=== PATIENT | male | born 1950 | race Caucasian/White ===

== ENCOUNTER 2018-01-05 10:23 | Day surgery (SDC) | payer MEDICARE, BC ==
[~2018-01-05 10:23] MED LIST: Acetaminophen 325 MG Tab PO SCH; Bisacodyl 5 MG Tab PO PRN; Cyclobenzaprine 10 MG Tab PO PRN; EPINEPHrine 1 MG/ML SDV ONE; Ketorolac 15 MG/ML SDV IVPUSH PRN; Lactated Ringers 1,000 ML IV SCH; Lidocaine 1%/Sod Bicarbonate in NS 8.4% 1 ML Syringe IDERM PRN; Magnesium Hydroxide 400 MG/5 ML Susp 30 ML Cup PO PRN; Morphine 2 MG/ML Syringe IVPUSH PRN; Naloxone 0.4 MG/ML SDV IVPUSH PRN; Ondansetron 4 MG/2 ML SDV IVPUSH PRN; Pregabalin 25 MG Cap PO SCH; Ropivacaine 0.5% 5 MG/ML 30 ML SDV ONE; Sennosides 8.6 MG Tab PO PRN; Sodium Chloride 0.9% 10 ML Syringe FLUSH PRN; oxyCODONE ER 10 MG TAB.ER PO SCH
[2018-01-05] MEDS ORDERED: Propofol 200 MG/20 ML SDV ONE ×2 (12:37→14:41)
[2018-01-05] MEDS ORDERED: Ketamine 500 mg/10 ML MDV ONE (12:44)
[2018-01-05] MEDS ORDERED: fentaNYL 100 MCG/2 ML SDV ONE (12:44)
[2018-01-05] MEDS ORDERED: Midazolam 1 MG/ML 2 ML SDV ONE (12:44)
[2018-01-05] MEDS ORDERED: Dexamethasone 4 MG/ML 5 ML MDV ONE (12:52)
[2018-01-05] MEDS ORDERED: Ondansetron 4 MG/2 ML SDV ONE (12:52)
[2018-01-05] MEDS ORDERED: ceFAZolin 1 GM Vial ONE (12:52)
[2018-01-05] MEDS ORDERED: Lactated Ringers 1,000 ML ONE (13:27)
[2018-01-05] MEDS: ceFAZolin 1 GM Vial ONE ×2 (14:03→14:28)
[2018-01-05] MEDS: Bupivacaine 0.25% 30 ML SDV ONE ×2 (14:03→14:34)
[2018-01-05] MEDS: Iodine/Sodium Iodide 2% Tincture 30 ML Bottle ONE ×2 (14:04→14:25)
[2018-01-05] MEDS: Morphine 8 MG, EPINEPHrine 0.3 MG, Cefuroxime 750 MG, Ketorolac 30 MG, Sodium Chloride ... ONE ×15 (14:05→17:59)
[2018-01-05] MEDS: Vancomycin 1 GM SDV ONE ×2 (14:05→14:36)
[2018-01-05] MEDS ORDERED: fentaNYL 100 MCG/2 ML SDV IVPUSH PRN (15:11)
[2018-01-05] MEDS ORDERED: diphenhydrAMINE 50 MG/ML SDV IVPUSH PRN (15:11)
[2018-01-05] MEDS ORDERED: Ondansetron 4 MG/2 ML SDV IVPUSH PRN (15:11)
[2018-01-05] MEDS ORDERED: Meperidine 50 MG/ML Vial IVPUSH PRN (15:11)
--- NOTE | 2018-01-05 15:11 | PCM.POSTAN ---
POST ANESTHESIA ASSESSMENT - MENTAL STATUS Mental Status: Alert, Oriented - VITAL SIGNS Pulse Rate: 61 SaO2: 97 Resp Rate: 16 Blood Pressure: 102/63 Temperature: 37.2 C - RESPIRATORY Respiratory Status: Respiratory Rate WNL, Airway Patent, O2 Saturation Stable, Supplemental Oxygen - CARDIOVASCULAR CV Status: Pulse Rate WNL, Blood Pressure Stable - GASTROINTESTINAL GI Status: No Symptoms - PAIN Pain Score: 0 - POST OP HYDRATION Hydration Status: Adequate & Stable
--- NOTE | 2018-01-05 15:41 | PCM.SN ---
- Free Text/Narrative Note: Right selective femoral nerve block at the adductor canal for post-procedure pain control Time Out: 1520 Start: 1526 End: 1529 Chart reviewed. Consent signed. Questions answered. Appropriate monitors applied. Time out performed. Right mid-shaft femur evaluated with ultrasound. Scanning medially femur, I was able to identify the femoral artery in the adductor canal. The saphenous nerve was lateral to the artery. The skin was prepped lateral to the ultrasound probe with chlorahexadine. The 21ga 4 insulated block needle was inserted under direct ultrasound guidance into the adductor canal. 20mL of 0.5% ropivacaine with 1:200,000 epinephrine was injected cirmcumferentially about the nerve with intermittent negative aspiration every 5mL. Patient tolerated the procedure well. See pictures on progress note and vital signs on nurses notes. Block completed postoperatively. Dean Rincon CRNA
--- NOTE | 2018-01-05 16:01 | PCM.SN ---
- Free Text/Narrative Note: In to see Ruben s/p R TKA POD 0. Overall he is doing well. He has no complaints at this time. Pain is controlled. Denies any MIRELES, N/V/D, abdominal pain, Chest pain, SOB, numbness/tingling, complaints. O2 2L NC. He does not have a urinary catheter. Incentive Spirometry. Neurovascularly intact with 2+ pulses in bilateral lower extremities. Bandage is dry and intact. He is working with PT. No concerns from nursing. Will likely be D/C'd tomorrow pending clinical disposition and labs.
[2018-01-05] MEDS: Docusate Sodium 100 MG Cap PO SCH ×2 (16:49→20:42)
[2018-01-05] MEDS: Famotidine 20 MG Tab PO SCH (20:42)
[2018-01-05] MEDS: ceFAZolin 2 GM in Premix Bag 1 BAG IV SCH (20:43)
[2018-01-05] MEDS: Acetaminophen/oxyCODONE 325-5 MG Tab PO PRN (22:47)
[2018-01-06] MEDS: Acetaminophen/oxyCODONE 325-5 MG Tab PO PRN ×3 (03:48→10:52)
[2018-01-06] MEDS: ceFAZolin 2 GM in Premix Bag 1 BAG IV SCH (05:12)
[2018-01-06] MEDS ORDERED: Levothyroxine 88 MCG Tab PO SCH (06:00)
--- NOTE | 2018-01-06 06:47 | PCM.SN ---
- Free Text/Narrative Note: In to see Ruben. He is S/P right TKA, post-op day 1. He is doing well. Currently working with PT. He denies any chest pain, palpitations, SOB, N/V/D, or abdominal pain. He has urinated. Labs and vital signs today look good. Pain is controlled. No nursing or patient concerns. Physical exam is unremarkable with no abdominal pain, clear lung sounds, and normal rate/rhythm. Pulses are 2 + bilaterally on upper and lower extremities with no neurological deficits. From a hospitalist standpoint he is cleared for discharge pending primary team and PT/OT agreement.
--- NOTE | 2018-01-06 07:55 | PCM.SURGPN ---
- General Info Date of Service: 01/06/18 POD#: 1 Functional Status: Reports: Pain Controlled, Tolerating Diet, Ambulating, Urinating, Incentive Spirometry - Review of Systems Musculoskeletal: Reports: Other (The pt states his pain is tolerable.) - Patient Data Vitals - Most Recent: Last Vital Signs Temp 97.2 F 01/06/18 03:34 Pulse 59 L 01/06/18 03:34 Resp 16 01/06/18 03:34 BP 130/78 01/06/18 03:34 Pulse Ox 97 01/06/18 03:34 Weight - Most Recent: 218 lb I&O - Last 24 Hours: Intake & Output 01/05/18 01/06/18 01/06/18 22:59 06:59 14:59 Intake Total 905 246 Output Total 1525 350 Balance -620 -104 Lab Results Last 24 Hrs: Laboratory Results - last 24 hr 01/05/18 01/06/18 01/06/18 Range/Units 10:50 05:45 05:45 WBC 13.74 H (4.23-9.07) K/mm3 RBC 4.10 L (4.63-6.08) M/mm3 Hgb 13.6 L (13.7-17.5) gm/L Hct 40.6 (40.1-51.0) % MCV 99.0 H (79.0-92.2) fl MCH 33.2 H (25.7-32.2) pg MCHC 33.5 (32.2-35.5) g/dl RDW Std Deviation 45.1 H (35.1-43.9) fL Plt Count 143 L (163-337) K/mm3 MPV 11.5 (9.4-12.3) fl PT 10.8 (9.5-12.1) SECONDS INR 0.99 Sodium 140 (136-145) mEq/L Potassium 3.9 (3.5-5.1) mEq/L Chloride 107 (98-107) mEq/L Carbon Dioxide 25 (21-32) mEq/L Anion Gap 11.9 (5-15) BUN 17 (7-18) mg/dL Creatinine 1.0 (0.7-1.3) mg/dL Est Cr Clr Drug Dosing 67.94 mL/min Estimated GFR (MDRD) > 60 (>60) mL/min BUN/Creatinine Ratio 17.0 (14-18) Glucose 114 (80-115) mg/dL Calcium 8.6 (8.5-10.1) mg/dL Total Bilirubin 0.8 (0.2-1.0) mg/dL AST 21 (15-37) U/L ALT 26 (16-63) U/L Alkaline Phosphatase 39 L (46-116) U/L Total Protein 6.4 (6.4-8.2) g/dl Albumin 3.2 L (3.4-5.0) g/dl Globulin 3.2 gm/dL Albumin/Globulin Ratio 1.0 (1-2) Med Orders - Current: Current Medications Allopurinol (Zyloprim) 300 mg PO DAILY [facility] Aspirin (Ecotrin) 325 mg PO BID [facility] Bisacodyl (Dulcolax) 5 mg PO DAILY PRN PRN Reason: Constipation Cholecalciferol (Vitamin D3) 5,000 unit PO DAILY [facility] Cyclobenzaprine HCl (Flexeril) 10 mg PO TID PRN PRN Reason: Spasms Docusate Sodium (Colace) 100 mg PO BID [facility] Last Admin: 01/05/18 20:42 Dose: 100 mg Famotidine (Pepcid) 20 mg PO Q12H [facility] Last Admin: 01/05/18 20:42 Dose: 20 mg Cefazolin Sodium/Dextrose 2 gm (/ Premix) 50 mls @ 100 mls/hr IV Q8H [facility] Stop: 01/06/18 13:29 Last Admin: 01/06/18 05:12 Dose: 100 mls/hr Ketorolac Tromethamine (Toradol) 15 mg IVPUSH Q6H PRN PRN Reason: Pain Levothyroxine Sodium (Synthroid) 88 mcg PO ACBREAKFAST [facility] Last Admin: 01/06/18 05:10 Dose: 88 mcg Magnesium Hydroxide (Milk Of Magnesia) 30 ml PO BID PRN PRN Reason: Constipation Morphine Sulfate (Morphine) 2 mg IVPUSH Q2H PRN PRN Reason: Breakthrough Pain Multivitamins (Thera) 1 each PO DAILY [facility] Naloxone HCl (Narcan) 0.1 mg IVPUSH Q5M PRN PRN Reason: Oversedation Ondansetron HCl (Zofran) 4 mg IVPUSH Q6H PRN PRN Reason: Nausea/Vomiting Oxycodone/Acetaminophen (Percocet 325-5 Mg) 1 - 2 tab PO Q4H PRN PRN Reason: Pain Last Admin: 01/06/18 03:48 Dose: 1 tab Senna (Senna) 8.6 mg PO BID PRN PRN Reason: Constipation Discontinued Medications Acetaminophen (Tylenol) 650 mg PO ONETIME [facility] Stop: 01/05/18 15:00 Last Admin: 01/05/18 12:11 Dose: 650 mg Bupivacaine HCl (Marcaine 0.25%) Confirm Administered Dose 30 ml .ROUTE .STK- MED ONE Stop: 01/05/18 12:08 Last Admin: 01/05/18 14:34 Dose: 30 ml Cefazolin Sodium (Ancef) Confirm Administered Dose 2 gm .ROUTE .STK-MED ONE Stop: 01/05/18 12:08 Last Admin: 01/05/18 14:28 Dose: 2 gm Cefazolin Sodium (Ancef) Confirm Administered Dose 2 gm .ROUTE .STK-MED ONE Stop: 01/05/18 12:53 Morphine Sulfate 8 mg/Epinephrine HCl 0.3 mg/Cefuroxime Sodium 750 mg/Ketorolac Tromethamine 30 mg/Sodium Chloride 27.9 ml 0 mg .XX ONETIME ONE Stop: 01/05/18 13:31 Last Admin: 01/05/18 17:59 Dose: Not Given Dexamethasone (Dexamethasone) Confirm Administered Dose 20 mg .ROUTE .STK-MED ONE Stop: 01/05/18 12:53 Diphenhydramine HCl (Benadryl) 25 mg IVPUSH Q6H PRN PRN Reason: Pruritis Stop: 01/05/18 23:00 Epinephrine HCl (Adrenalin) Confirm Administered Dose 1 mg .ROUTE .STK-MED ONE Stop: 01/05/18 08:21 Fentanyl (Sublimaze) Confirm Administered Dose 100 mcg .ROUTE .STK-MED ONE Stop: 01/05/18 12:45 Fentanyl (Sublimaze) 50 mcg IVPUSH Q5M PRN PRN Reason: Pain Stop: 01/05/18 23:00 Lactated Ringer's (Ringers, Lactated) 1,000 mls @ 125 mls/hr IV ASDIRECTED [facility] Stop: 01/05/18 23:00 Last Admin: 01/05/18 10:55 Dose: 125 mls/hr Lactated Ringer's (Ringers, Lactated) Confirm Administered Dose 1,000 mls @ as directed .ROUTE .ST-MED ONE Stop: 01/05/18 13:28 Iodine (Iodine 2% Mild Tincture) Confirm Administered Dose 30 ml .ROUTE .STK- MED ONE Stop: 01/05/18 12:08 Last Admin: 01/05/18 14:25 Dose: 18 ml Ketamine HCl (Ketalar) Confirm Administered Dose 500 mg .ROUTE .STK-MED ONE Stop: 01/05/18 12:45 Lidocaine/Sodium Bicarbonate (Buffered Lidocaine 1% In Ns 8.4%) 0.25 ml IDERM ONETIME PRN PRN Reason: Prior to IV Start Stop: 01/05/18 18:00 Last Admin: 01/05/18 10:55 Dose: 0.25 ml Meperidine HCl (Meperidine) 12.5 mg IVPUSH ONETIME PRN PRN Reason: Shivering Stop: 01/05/18 23:00 Midazolam HCl (Versed 1 Mg/Ml) Confirm Administered Dose 2 mg .ROUTE .STK-MED ONE Stop: 01/05/18 12:45 Non-Formulary Medication (Chromium Picolinate [Chromium Picolinate]) 400 mcg PO DAILY [facility] Ondansetron HCl (Zofran) Confirm Administered Dose 4 mg .ROUTE .STK-MED ONE Stop: 01/05/18 12:53 Ondansetron HCl (Zofran) 4 mg IVPUSH ONETIME PRN PRN Reason: Nausea/Vomiting Stop: 01/05/18 23:00 Oxycodone HCl (Oxycontin) 10 mg PO ONETIME [facility] Stop: 01/05/18 16:00 Last Admin: 01/05/18 12:10 Dose: 10 mg Pregabalin (Lyrica) 50 mg PO ONETIME [facility] Stop: 01/05/18 15:00 Last Admin: 01/05/18 12:10 Dose: 50 mg Propofol (Diprivan 20 Ml) Confirm Administered Dose 600 mg .ROUTE .STK-MED ONE Stop: 01/05/18 12:38 Propofol (Diprivan 20 Ml) Confirm Administered Dose 200 mg .ROUTE .STK-MED ONE Stop: 01/05/18 14:42 Ropivacaine (Naropin 0.5%) Confirm Administered Dose 30 ml .ROUTE .STK-MED ONE Stop: 01/05/18 08:22 Sodium Chloride (Saline Flush) 10 ml FLUSH ASDIRECTED PRN PRN Reason: Keep Vein Open Stop: 01/05/18 18:00 Tranexamic Acid (Cyklokapron) Confirm Administered Dose 1,000 mg .ROUTE .STK- MED ONE Stop: 01/05/18 12:08 Last Admin: 01/05/18 14:40 Dose: 1,000 mg Vancomycin HCl (Vancomycin) Confirm Administered Dose 1 gm .ROUTE .STK-MED ONE Stop: 01/05/18 12:08 Last Admin: 01/05/18 14:36 Dose: 1 gm - Exam Wound/Incisions: Dressing Dry and Intact General: Alert, Cooperative, No Acute Distress Lungs: Normal Respiratory Effort Extremities: Other (NVS intact for BLE. Silvestre's negative.) - Problem List Review Problem List Initiated/Reviewed/Updated: Yes - My Orders Last 24 Hours: Active Orders 24 hr Category Date Time Status Patient Status [ADT] Routine ADT 01/05/18 07:11 Active Ambulate [RC] PER UNIT ROUTINE Care 01/05/18 07:11 Active Communication Order [RC] ROUTINE Care 01/05/18 15:11 Active Cooling Warming Measures [RC] ASDIRECTED Care 01/05/18 15:11 Inactive May Shower [RC] ASDIRECTED Care 01/05/18 07:11 Active Notify Provider Consults [RC] ASDIRECTED Care 01/05/18 07:14 Active Notify Provider [RC] ASDIRECTED Care 01/05/18 15:11 Active Oxygen Therapy [RC] .PRN Care 01/05/18 15:11 Active Pulse Oximetry [RC] ASDIRECTED Care 01/05/18 15:11 Active RT Incentive Spirometry [RC] Q1HWA Care 01/05/18 07:10 Active Ready for Discharge [RC] PER UNIT ROUTINE Care 01/06/18 07:52 Ordered Up to Chair [RC] ASDIRECTED Care 01/05/18 07:11 Active Urinary Catheter Removal [RC] 2325 Care 01/05/18 07:10 Active Vital Signs [RC] Q15M Care 01/05/18 15:11 Inactive Vital Signs [RC] Q4HR Care 01/05/18 07:11 Active Consult to Physician [CONS] Routine Cons 10/01/18 07:11 Active OT Evaluation and Treatment [CONS] Routine Cons 01/05/18 07:10 Active PT Evaluation and Treatment [CONS] Routine Cons 01/05/18 07:10 Active Regular Diet [DIET] Diet 01/05/18 Lunch Active Knee 1V or 2V Rt [CR] Timed Exams 01/05/18 07:10 Taken Acetaminophen/oxyCODONE [Percocet 325-5 MG] Med 01/05/18 07:10 Active 1 - 2 tab PO Q4H PRN Allopurinol [Zyloprim] Med 01/06/18 09:00 Active 300 mg PO DAILY Aspirin [Ecotrin] Med 01/06/18 09:00 Active 325 mg PO BID Bisacodyl [Dulcolax] Med 01/05/18 07:11 Active 5 mg PO DAILY PRN Cholecalciferol (Vitamin D3) [Vitamin D3] Med 01/06/18 09:00 Active 5,000 unit PO DAILY Cyclobenzaprine [Flexeril] Med 01/05/18 07:10 Active 10 mg PO TID PRN Docusate Sodium [Colace] Med 01/05/18 09:00 Active 100 mg PO BID Famotidine [Pepcid] Med 01/05/18 21:00 Active 20 mg PO Q12H Ketorolac [Toradol] Med 01/05/18 07:10 Active 15 mg IVPUSH Q6H PRN Levothyroxine [Synthroid] Med 01/06/18 06:00 Active 88 mcg PO ACBREAKFAST Magnesium Hydroxide [Milk of Magnesia] Med 01/05/18 07:11 Active 30 ml PO BID PRN Morphine Med 01/05/18 07:11 Active 2 mg IVPUSH Q2H PRN Multivitamins,Therapeutic [Thera] Med 01/06/18 09:00 Active 1 each PO DAILY Naloxone [Narcan] Med 01/05/18 07:11 Active 0.1 mg IVPUSH Q5M PRN Ondansetron [Zofran] Med 01/05/18 07:11 Active 4 mg IVPUSH Q6H PRN Sennosides [Senna] Med 01/05/18 07:11 Active 8.6 mg PO BID PRN ceFAZolin [Ancef] 2 gm Med 01/05/18 21:00 Active Premix Bag 1 bag IV Q8H Antiembolic Hose [OM.PC] Per Unit Routine Oth 01/05/18 07:13 Ordered Ice Therapy [OM.PC] Per Unit Routine Oth 01/05/18 07:12 Ordered Sequential Compression Device [OM.PC] Per Unit Routine Oth 01/05/18 07:10 Ordered Resuscitation Status Routine Resus Stat 01/05/18 07:11 Ordered Medication Orders Allopurinol (Zyloprim) 300 mg PO DAILY [facility] Aspirin (Ecotrin) 325 mg PO BID [facility] Bisacodyl (Dulcolax) 5 mg PO DAILY PRN PRN Reason: Constipation Cholecalciferol (Vitamin D3) 5,000 unit PO DAILY [facility] Cyclobenzaprine HCl (Flexeril) 10 mg PO TID PRN PRN Reason: Spasms Docusate Sodium (Colace) 100 mg PO BID [facility] Last Admin: 01/05/18 20:42 Dose: 100 mg Admin: 01/05/18 16:49 Dose: Not Given Famotidine (Pepcid) 20 mg PO Q12H [facility] Last Admin: 01/05/18 20:42 Dose: 20 mg Cefazolin Sodium/Dextrose 2 gm (/ Premix) 50 mls @ 100 mls/hr IV Q8H [facility] Stop: 01/06/18 13:29 Last Admin: 01/06/18 05:12 Dose: 100 mls/hr Infusion: 01/05/18 21:13 Dose: 100 mls/hr Admin: 01/05/18 20:43 Dose: 100 mls/hr Ketorolac Tromethamine (Toradol) 15 mg IVPUSH Q6H PRN PRN Reason: Pain Levothyroxine Sodium (Synthroid) 88 mcg PO ACBREAKFAST [facility] Last Admin: 01/06/18 05:10 Dose: 88 mcg Magnesium Hydroxide (Milk Of Magnesia) 30 ml PO BID PRN PRN Reason: Constipation Morphine Sulfate (Morphine) 2 mg IVPUSH Q2H PRN PRN Reason: Breakthrough Pain Multivitamins (Thera) 1 each PO DAILY [facility] Naloxone HCl (Narcan) 0.1 mg IVPUSH Q5M PRN PRN Reason: Oversedation Ondansetron HCl (Zofran) 4 mg IVPUSH Q6H PRN PRN Reason: Nausea/Vomiting Oxycodone/Acetaminophen (Percocet 325-5 Mg) 1 - 2 tab PO Q4H PRN PRN Reason: Pain Last Admin: 01/06/18 03:48 Dose: 1 tab Admin: 01/05/18 22:47 Dose: 1 tab Senna (Senna) 8.6 mg PO BID PRN PRN Reason: Constipation - Assessment Assessment (Free Text/Narrative):: POD#1 - right TKA - Plan Plan (Free Text/Narrative):: 1. Discharge to home today. 2. 325mg ASA PO BID. Frequent mobility, TEDs. 3. Hgb 13.6. 4. Outpatient therapy. The pt's case was discussed with Dr. Martell.
[2018-01-06] MEDS: Famotidine 20 MG Tab PO SCH (08:10)
[2018-01-06] MEDS: Docusate Sodium 100 MG Cap PO SCH (08:11)
--- NOTE | 2018-01-06 08:53 | CR ---
Right knee: AP and lateral views of the right knee were obtained. Comparison: No previous knee exam. Knee prosthesis is seen. Components are aligned. Underlying bony structures are intact. Soft tissue air noted from the surgical procedure. No fracture or other abnormality is seen. Impression: 1. Satisfactory postoperative radiographic appearance of recently placed right knee prosthesis. Diagnostic code #2
[2018-01-06] MEDS ORDERED: Multivitamins,Therapeutic Tab PO SCH (09:00)
[2018-01-06] MEDS ORDERED: Cholecalciferol (Vitamin D3) 5,000 UNIT Tab PO SCH (09:00)
[2018-01-06] MEDS ORDERED: Aspirin 325 MG Tab.EC PO SCH (09:00)
[2018-01-06] MEDS ORDERED: Allopurinol 300 MG Tab PO SCH (09:00)
[2018-01-06] MEDS ORDERED: CHROMIUM PICOLINATE 400 MCG PO SCH (09:00)
--- NOTE | 2018-01-06 09:26 | PCM48HPAN ---
Post Anesthesia Note - EVALUATION WITHIN 48HRS OF ANESTHETIC Vital Signs in Normal Range: Yes Patient Participated in Evaluation: Yes Respiratory Function Stable: Yes Airway Patent: Yes Cardiovascular Function Stable: Yes Hydration Status Stable: Yes Pain Control Satisfactory: Yes Nausea and Vomiting Control Satisfactory: Yes Mental Status Recovered: Yes
--- NOTE | 2018-01-12 09:48 | PCM.OPNOTE ---
- General Post-Op/Procedure Note Date of Surgery/Procedure: 01/05/18 Operative Procedure(s): right total knee arthroplasty Pre Op Diagnosis: right knee osteoarthrosis Post-Op Diagnosis: Same Anesthesia Technique: Local, MAC, Spinal Primary Surgeon: Babak Martell Anesthesia Provider: Dean Rincon Quality Assurance Tech: Sumi Albright Quality Assurance Tech: Nolvia Presley EBVenice in mLs: 300 Complications: None Condition: Good Free Text/Narrative:: size 6/6 9mm 35x10
--- NOTE | 2018-01-12 10:11 | OR ---
DATE OF OPERATION: 01/05/2018 SURGEON: Babak Martell MD OPERATION PERFORMED: Right total knee arthroplasty. PREOPERATIVE DIAGNOSIS: Right knee osteoarthrosis. POSTOPERATIVE DIAGNOSIS: Right knee osteoarthrosis. ANESTHESIA: Local MAC with spinal. ANESTHESIA PROVIDER: Dean Rincon. RADIOTELEGRAPH OPERATOR: 1. Sumi Albright PA-C. 2. Nolvia Presley LPN. ESTIMATED BLOOD LOSS: 300 mL COMPLICATIONS: None. CONDITION: Stable. IMPLANTS: 1. Simon size 6 press-fit CR femur. 2. Danese size 6 press-fit tibial base plate. 3. Danese size 6, 9 mm CS polyethylene insert. 4. Danese size 35 x 10 mm press-fit patella. DESCRIPTION OF PROCEDURE: The patient was identified in the preop holding area. Proper site was marked and identified by the surgeon. The patient was taken back to the operating theater. After adequate anesthesia, the patient's right lower extremity had a nonsterile tourniquet applied and it was then sterilely prepped and draped in the usual sterile fashion. OR timeout was performed. The patient received 2 g IV Ancef. At this time, right lower extremity was exsanguinated. Tourniquet was insufflated to 300 mmHg. Standard medial parapatellar incision was made. Medial parapatellar arthrotomy was created. Deep fibers of the MCL were raised and anterior fat pad was resected. At this time, attention was turned to the patella. Patella measured 24, it was resected to a 14 for 35 x 10 mm patella. Drill holes were then drilled and found to be in adequate position. The drill was then drilled in the distal femur and the intramedullary distal femoral cutting guide was then placed. 8 mm was resected off the distal femur and was found to be an adequate resection. Sizing guide was placed. It was found to be a size 6 press-fit CR femur that was shown on the implant record at the beginning of this dictation. The drill holes were drilled for the epicondylar axis using Whitesides line and epicondyles as reference. At this time, the 4-in- 1 cutting block was placed. An anterior posterior and anterior and posterior chamfer cuts were then completed. The correct size box cut was then placed and the box cut was completed and found to be an adequate resection. Attention was turned to the tibia. The posterior medial lateral retractors were placed. The extramedullary tibial guide was placed. It was placed in the old footprint of the ACL. It was aligned with the center of the ankle and 0 degrees of slope, 9 mm was then resected off the unaffected lateral side. There was found to be an acceptable reduction. At this time, posterior osteophytes were removed along with medial and lateral meniscus. A trial implant was placed with a correct sized tibia that was mentioned at the beginning of the dictation. A Danese size 6, 9 mm CS polyethylene was then placed. The patient's knee was brought through range of motion. The patella was tracking centrally and was stable to varus and valgus stress. Alignment was found to be roughly at 0 degrees. At this time, cement was mixed on the back table. The tibia was stamped and drilled in proper rotation. All cut surfaces were irrigated with pulse lavage irrigation with Ancef and then completely dried. Once this was completed, then the cement was ready. The universal tibial base plate was cemented in place. Next, the Danese size 6 press-fit CR femur cemented into place and the Simon size 6, 9 mm CS polyethylene was placed. The patient's knee was brought into full extension. Excess cement was removed. The patella was then cemented in place at this time. Tourniquet was deflated. One liter dilute Betadine solution was irrigated through the knee along with 3 L of pulse lavage irrigation with Ancef. Periarticular injection was then completed. The patient's knee was brought through a range of motion. Once the cement had time to set up and it was found to be stable to varus valgus stress, the patella was tracking centrally with full range of motion. At this time, a #2 barbed suture was used for closure of the medial parapatellar arthrotomy. Topical tranexamic acid was placed. 2-0 Vicryl was used subcutaneously, a running 3-0 Monocryl was used subcuticularly. The patient tolerated the procedure well and was sent to the PACU in stable condition. VISHAL /[id number]
== END 2018-01-06 11:07 | disposition home or self-care (01) ==
LOC: JD.SDS 10:23 → JD.ICU 15:22 → JD.SDS 01-06 11:07
PROVIDERS: ATTEND Orthopaedic Surgery
DX: M17.11 Unilateral primary osteoarthritis, right knee (principal); E03.9 Hypothyroidism, unspecified; G47.33 Obstructive sleep apnea (adult) (pediatric); Z99.89 Dependence on other enabling machines and devices; M10.9 Gout, unspecified; G60.9 Hereditary and idiopathic neuropathy, unspecified; Z79.899 Other long term (current) drug therapy
CPT/HCPCS: 01402; 36415; 64450; 73560-26-RT; 73560-RT; 80053; 85027; 85610; 90662; 97110-GP; 97116-GP; 97161-GP; 97165-GO; 97535-GO; A9270-GY; C1776; J0171; J0690; J0697; J1100; J1885; J2250; J2270; J2405; J2704; J2795; J3010; J3370; J3490; J7120